=== PATIENT | male | born 1975 | race Caucasian/White ===

== ENCOUNTER 2018-09-26 17:57 | Emergency (ER) | payer OTHER ==
[2018-09-26] MEDS ORDERED: Bupivacaine 0.5% 10 ML SDV INJECT ONE (18:10)
[2018-09-26] MEDS ORDERED: Lidocaine 1% with EPINEPHrine 1:100,000 20 ML MDV INJECT ONE (18:10)
[2018-09-26] MEDS ORDERED: Diphtheria,Pertussis(Acell),Tetanus Vaccine 0.5 ML Syringe IM ONE (18:11)
[2018-09-26] MEDS ORDERED: ceFAZolin 1 GM Vial IM ONE (18:11)
--- NOTE | 2018-09-26 18:18 | EDM.PDOC ---
ED HPI GENERAL MEDICAL PROBLEM - General Chief Complaint: Lower Extremity Injury/Pain Stated Complaint: LEG INJURY Time Seen by Provider: 09/26/18 18:04 Source of Information: Reports: Patient History Limitations: Reports: No Limitations - History of Present Illness INITIAL COMMENTS - FREE TEXT/NARRATIVE: History of present illness: []Patient states the tire blew out and hit his leg proximal 4 PM today. Denies any other injuries. Review of systems: As per history of present illness and below otherwise all systems reviewed and negative. Past medical history: As per history of present illness and as reviewed below otherwise noncontributory. Surgical history: As per history of present illness and as reviewed below otherwise noncontributory. Social history: No reported history of drug or alcohol abuse. Family history: As per history of present illness and as reviewed below otherwise noncontributory. Physical exam: General: Well developed, well nourished in NAD HEENT: Atraumatic, normocephalic, pupils reactive, negative for conjunctival pallor or scleral icterus, mucous membranes moist, throat clear, neck supple, nontender, trachea midline. Lungs: Clear to auscultation, breath sounds equal bilaterally, chest nontender. Heart: S1S2, regular, negative for clicks, rubs, or JVD. Abdomen: NABS, Soft, nondistended, nontender. Negative for masses or hepatosplenomegaly. Negative for costovertebral tenderness. Pelvis: Stable nontender. Genitourinary: Deferred. Rectal: Deferred. Extremities: Atraumatic, negative for cords or calf pain. Neurovascular unremarkable. Neuro: Awake, alert, oriented. Cranial nerves II through XII unremarkable. Cerebellum unremarkable. Motor and sensory unremarkable throughout. Exam nonfocal. Skin:warm and dry Diagnostics: Therapeutics: ED Course: Impression: Prescriptions: Plan: Definitive disposition and diagnosis as appropriate pending reevaluation and review of above. Right Lower Leg Pain Score (Numeric/FACES): 10 - Related Data Allergies Allergy/AdvReac Type Severity Reaction Status Date / Time No Known Allergies Allergy Verified 12/10/17 17:44 Home Meds: Home Meds Allopurinol [Zyloprim] 600 mg PO DAILY 12/10/17 [History] methylPREDNISolone [Medrol] 4 mg PO DAILY 12/10/17 [History] Cyclobenzaprine [Flexeril] 10 mg PO BID PRN #12 tab 08/07/19 [Rx] traMADol HCl [Tramadol HCl] 50 mg PO Q6H PRN #16 tablet 09/26/18 [Rx] Past Medical History - Past Health History Medical/Surgical History: Denies Medical/Surgical History HEENT History: Reports: None Cardiovascular History: Reports: None Respiratory History: Reports: None Gastrointestinal History: Reports: None Genitourinary History: Reports: None Musculoskeletal History: Reports: Gout Neurological History: Reports: None Psychiatric History: Reports: None Endocrine/Metabolic History: Reports: None Hematologic History: Reports: None Immunologic History: Reports: None Oncologic (Cancer) History: Reports: None Dermatologic History: Reports: None - Infectious Disease History Infectious Disease History: Reports: None - Past Surgical History Head Surgeries/Procedures: Reports: None Social & Family History - Family History Family Medical History: Noncontributory - Tobacco Use Smoking Status *Q: Never Smoker - Caffeine Use Caffeine Use: Reports: None - Recreational Drug Use Recreational Drug Use: No Review of Systems - Review of Systems Review Of Systems: See Below ED EXAM, GENERAL - Physical Exam Exam: See Below Course - Vital Signs Last Recorded V/S: Last Vital Signs Temp 97.0 F 09/26/18 18:04 Pulse 82 09/26/18 18:04 Resp 18 09/26/18 18:04 BP 149/87 H 09/26/18 18:04 Pulse Ox 96 09/26/18 18:04 - Orders/Labs/Meds Orders: Active Orders 24 hr Category Date Time Status Vaccines to be Administered [RC] PER UNIT ROUTINE Care 09/26/18 18:11 Active Tibia Fibula Rt [CR] Stat Exams 09/26/18 18:09 Taken Meds: Medications Discontinued Medications Generic Name Dose Route Start Last Admin Trade Name Freq PRN Reason Stop Dose Admin Bacitracin 1 dose 09/26/18 18:25 09/26/18 18:32 Bacitracin Oint 1 Gm TOP 09/26/18 18:26 1 dose ONETIME ONE Administration Bupivacaine HCl 10 ml 09/26/18 18:10 09/26/18 18:24 Sensorcaine-Mpf 0.5% INJECT 09/26/18 18:11 10 ml ONETIME ONE Administration Cefazolin Sodium 1 gm 09/26/18 18:11 09/26/18 18:37 Ancef IM 09/26/18 18:12 1 gm ONETIME ONE Administration Diphtheria/Tetanus/Acell Pertussis 0.5 ml 09/26/18 18:11 09/26/18 18:23 Adacel IM 09/26/18 18:12 0.5 ml .ONCE ONE Administration Sterile Water Confirm 09/26/18 18:21 09/26/18 18:25 Sterile Water For Injection Administered 09/26/18 18:22 2.5 mls/hr Dose Administration 20 mls @ as directed .ROUTE .STK-MED ONE Lidocaine/Epinephrine 20 ml 09/26/18 18:10 09/26/18 18:24 Xylocaine 1% With Epinephrine 1:100,000 INJECT 09/26/18 18:11 20 ml ONETIME ONE Administration Departure - Departure Time of Disposition: 18:39 Disposition: Home, Self-Care 01 Condition: Good Clinical Impression: Laceration of right lower leg Qualifiers: Encounter type: initial encounter Qualified Code(s): S81.811A - Laceration without foreign body, right lower leg, initial encounter Contusion of right leg Qualifiers: Encounter type: initial encounter Qualified Code(s): S80.11XA - Contusion of right lower leg, initial encounter - Discharge Information *PRESCRIPTION DRUG MONITORING PROGRAM REVIEWED*: No *COPY OF PRESCRIPTION DRUG MONITORING REPORT IN PATIENT KANG: No Referrals: PCP,Unknown [Primary Care Provider] - Forms: ED Department Discharge Additional Instructions: The following information is given to patients seen in the emergency department who are being discharged to home. This information is to outline your options for follow-up care. We provide all patients seen in our emergency department with a follow-up referral. The need for follow-up, as well as the timing and circumstances, are variable depending upon the specifics of your emergency department visit. If you don't have a primary care physician on staff, we will provide you with a referral. We always advise you to contact your personal physician following an emergency department visit to inform them of the circumstance of the visit and for follow-up with them and/or the need for any referrals to a consulting specialist. The emergency department will also refer you to a specialist when appropriate. This referral assures that you have the opportunity for follow-up care with a specialist. All of these measure are taken in an effort to provide you with optimal care, which includes your follow-up. Under all circumstances we always encourage you to contact your private physician who remains a resource for coordinating your care. When calling for follow-up care, please make the office aware that this follow-up is from your recent emergency room visit. If for any reason you are refused follow-up, please contact the [facility] at and asked to speak to the emergency department charge nurse. Take meds as directed, follow up with your primary care physician, return to ER if symptoms worsen or change. Ice leg contusion 20 minutes at a time as much as possible. Elevate leg above the level of your heart return to ER immediately if any worsening pain, numbness tingling or decrease capillary refill (which was shown to you) occurs. [facility] [address] [place] [id number] - My Orders Last 24 Hours: My Active Orders 09/26/18 18:09 Tibia Fibula Rt [CR] Stat 09/26/18 18:11 Vaccines to be Administered [RC] PER UNIT ROUTINE - Assessment/Plan Last 24 Hours: My Active Orders 09/26/18 18:09 Tibia Fibula Rt [CR] Stat 09/26/18 18:11 Vaccines to be Administered [RC] PER UNIT ROUTINE
[2018-09-26] MEDS ORDERED: Water For Injection, Sterile 20 ML ONE (18:21)
[2018-09-26] MEDS ORDERED: Bacitracin Oint 1 GM U/D Packet TOP ONE (18:25)
--- NOTE | 2018-09-26 18:52 | CR ---
INDICATION: trauma - tire blew out TECHNIQUE: Right tibia and fibula 2 views. COMPARISON: None. FINDINGS: Bones: Alignment is normal. No fractures or bone lesions. Joint spaces: Unremarkable. Soft tissues: Unremarkable. IMPRESSION: Unremarkable right tibia and fibula. Dictated by: Osito Zhang MD @ 09/26/2018 18:51:14 (Electronically Signed)
== END 2018-09-26 18:55 | disposition home or self-care (01) ==
LOC: MW.ED 17:57
DX: S81.811A Laceration without foreign body, right lower leg, initial encounter (principal); S70.11XA Contusion of right thigh, initial encounter; Z23 Encounter for immunization; W22.8XXA Striking against or struck by other objects, initial encounter
CPT/HCPCS: 12001; 73590; 90471; 90715; 96372; 99283; J0690; J3490; 99282

== ENCOUNTER 2018-10-04 17:18 | Emergency (ER) | payer OTHER ==
--- NOTE | 2018-10-04 17:52 | EDM.PDOC ---
ED HPI GENERAL MEDICAL PROBLEM - General Chief Complaint: Lower Extremity Injury/Pain Stated Complaint: NEEDS STICHES REMOVED FROM R [facility]TE[facility] Time Seen by Provider: 10/04/18 17:44 Source of Information: Reports: Patient History Limitations: Reports: No Limitations - History of Present Illness INITIAL COMMENTS - FREE TEXT/NARRATIVE: History of present illness: []Patient was here on 09/26 with a laceration to his left leg after a tire at work blew out and hit his leg and thigh. Patient's wound is erythematous and still has edema of his lower leg. He denies any fevers, chills, calf or chest pain and shortness of breath. He states he's drinking plenty of fluids and that his urine is clear. Patient has not been able to go back to work due to pain. Patient is also requesting a refill of his pain meds. Review of systems: As per history of present illness and below otherwise all systems reviewed and negative. Past medical history: As per history of present illness and as reviewed below otherwise noncontributory. Surgical history: As per history of present illness and as reviewed below otherwise noncontributory. Social history: No reported history of drug or alcohol abuse. Family history: As per history of present illness and as reviewed below otherwise noncontributory. Physical exam: General: Well developed, well nourished in NAD HEENT: Atraumatic, normocephalic, pupils reactive, negative for conjunctival pallor or scleral icterus, mucous membranes moist, throat clear, neck supple, nontender, trachea midline. Lungs: Clear to auscultation, breath sounds equal bilaterally, chest nontender. Heart: S1S2, regular, negative for clicks, rubs, or JVD. Abdomen: NABS, Soft, nondistended, nontender. Negative for masses or hepatosplenomegaly. Negative for costovertebral tenderness. Pelvis: Stable nontender. Genitourinary: Deferred. Rectal: Deferred. ExLaceration healing bowen in place there is surrounding edematous tissue with mild erythema and yellowish edges.negative for cords or calf pain. Neurovascular unremarkable. Neuro: Awake, alert, oriented. Cranial nerves II through XII unremarkable. Cerebellum unremarkable. Motor and sensory unremarkable throughout. Exam nonfocal. Skin:warm and dry Diagnostics: None Therapeutics: None ED Course: Stable Impression: Wound check Prescriptions: Keflex, tramadol Plan: Follow-up with primary care Definitive disposition and diagnosis as appropriate pending reevaluation and review of above. Right Lower Leg Pain Score (Numeric/FACES): 8 - Related Data Allergies Allergy/AdvReac Type Severity Reaction Status Date / Time No Known Allergies Allergy Verified 10/04/18 17:38 Home Meds: Home Meds Allopurinol [Zyloprim] 600 mg PO DAILY 12/10/17 [History] methylPREDNISolone [Medrol] 4 mg PO DAILY 12/10/17 [History] Cyclobenzaprine [Flexeril] 10 mg PO BID PRN #12 tab 09/26/18 [Rx] traMADol HCl [Tramadol HCl] 50 mg PO Q6H PRN #16 tablet 09/26/18 [Rx] Cephalexin [Keflex] 500 mg PO TID #30 capsule 10/04/18 [Rx] traMADol HCl [Tramadol HCl] 50 mg PO Q6H PRN #20 tablet 10/04/18 [Rx] Past Medical History - Past Health History Medical/Surgical History: Denies Medical/Surgical History HEENT History: Reports: None Cardiovascular History: Reports: None Respiratory History: Reports: None Gastrointestinal History: Reports: None Genitourinary History: Reports: None Musculoskeletal History: Reports: Gout Neurological History: Reports: None Psychiatric History: Reports: None Endocrine/Metabolic History: Reports: None Hematologic History: Reports: None Immunologic History: Reports: None Oncologic (Cancer) History: Reports: None Dermatologic History: Reports: None - Infectious Disease History Infectious Disease History: Reports: None - Past Surgical History Head Surgeries/Procedures: Reports: None Social & Family History - Family History Family Medical History: Noncontributory - Tobacco Use Smoking Status *Q: Never Smoker Second Hand Smoke Exposure: No - Caffeine Use Caffeine Use: Reports: Coffee - Recreational Drug Use Recreational Drug Use: No Review of Systems - Review of Systems Review Of Systems: See Below ED EXAM, GENERAL - Physical Exam Exam: See Below Course - Vital Signs Last Recorded V/S: Last Vital Signs Temp 97.6 F 10/04/18 17:38 Pulse 84 10/04/18 17:38 Resp 16 10/04/18 17:38 BP 137/92 H 10/04/18 17:38 Pulse Ox 94 L 10/04/18 17:38 Departure - Departure Time of Disposition: 17:56 Disposition: Home, Self-Care 01 Condition: Good Clinical Impression: Visit for wound check - Discharge Information *PRESCRIPTION DRUG MONITORING PROGRAM REVIEWED*: Not Applicable *COPY OF PRESCRIPTION DRUG MONITORING REPORT IN PATIENT KANG: Not Applicable Prescriptions: Cephalexin [Keflex] 500 mg PO TID #30 capsule traMADol HCl [Tramadol HCl] 50 mg PO Q6H PRN #20 tablet PRN Reason: Pain Referrals: PCP,None [Primary Care Provider] - Forms: ED Department Discharge Additional Instructions: The following information is given to patients seen in the emergency department who are being discharged to home. This information is to outline your options for follow-up care. We provide all patients seen in our emergency department with a follow-up referral. The need for follow-up, as well as the timing and circumstances, are variable depending upon the specifics of your emergency department visit. If you don't have a primary care physician on staff, we will provide you with a referral. We always advise you to contact your personal physician following an emergency department visit to inform them of the circumstance of the visit and for follow-up with them and/or the need for any referrals to a consulting specialist. The emergency department will also refer you to a specialist when appropriate. This referral assures that you have the opportunity for follow-up care with a specialist. All of these measure are taken in an effort to provide you with optimal care, which includes your follow-up. Under all circumstances we always encourage you to contact your private physician who remains a resource for coordinating your care. When calling for follow-up care, please make the office aware that this follow-up is from your recent emergency room visit. If for any reason you are refused follow-up, please contact the [facility] Emergency Department at and asked to speak to the emergency department charge nurse. Take meds as directed, follow up with your primary care physician, return to ER if symptoms worsen or change. [facility] [address] [place] [id number]
== END 2018-10-04 18:17 | disposition home or self-care (01) ==
LOC: MW.ED 17:18
DX: S81.811D Laceration without foreign body, right lower leg, subsequent encounter (principal); M10.9 Gout, unspecified; Z79.899 Other long term (current) drug therapy; W22.8XXD Striking against or struck by other objects, subsequent encounter
CPT/HCPCS: 99282